=== PATIENT | female | born 1970 | race Caucasian/White ===

== ENCOUNTER 2021-02-11 02:44 | Emergency (ER) | payer BC ==
[~2021-02-11] VITALS: Ht 149.9 cm; Wt 63.0 kg
[2021-02-11 03:04] VITALS: BP 153/101
--- NOTE | 2021-02-11 03:15 | NUR ---
PT TO LOBBY. URINE PROVIDED.
[2021-02-11] MEDS ORDERED: IBUP-2213 PO (04:12)
[2021-02-11] MEDS ORDERED: OMEP40EC23 PO (04:12)
--- NOTE | 2021-02-11 04:44 | NUR ---
Patient discharged with v/s stable. Written and verbal after care instructions given and explained. Patient alert, oriented and verbalized understanding of instructions. Ambulatory with steady gait. All questions addressed prior to discharge. ID band removed. Patient advised to follow up with PMD. Rx of prilosec and motrin given. Patient educated on indication of medication including possible reaction and side effects. Opportunity to ask questions provided and answered.
== END 2021-02-11 04:44 | disposition home or self-care (01) ==
LOC: MED 02:44
DX: R10.13 Epigastric pain (principal); Z90.49 Acquired absence of other specified parts of digestive tract
CPT/HCPCS: 81002; 81025; 99283